=== PATIENT | female | born 1985 | race Caucasian/White ===

== ENCOUNTER 2016-11-01 09:30 | Day surgery (SDC) | payer BC ==
--- OUTSIDE RECORDS SUMMARY | 2016-11-01 09:33 | XMS REPORT | Continuity of Care Document ---
:1985 Author Organization [facility] ([facility]) Address [address] [place] [address] Phone [phone] Care Team Providers Name Role Phone Joselyn Masters Primary Care Provider [phone] Source Comments This disclosure is being made pursuant to the Care Everywhere program, applicable federal and state laws, and may not contain all informaitonavailable regarding this patient.[facility] ([facility]) Active Allergies and Adverse Reactions Allergen Noted Date Severity Reactions Comments Codeine 11/07/2013 Chest pain Prednisone 10/14/2015 OTHER Severe Migraine Current Medications Prescription Sig. Disp. Refills Start Date End Date Status gabapentin 300 mg 09/17/2015 Active capsule ibuprofen 800 mg tablet 08/22/2015 Active phentermine 30 mg Take 30 mg by mouth Active capsule every morning after breakfast. Take 2 hours after breakfast. ivermectin (SOOLANTRA) 1 Apply topically 30 g 11 04/20/2016 Active % topical cream daily. ketoconazole 2 % cream Apply to face daily. 30 g 11 04/20/2016 Active Active Problems Problem Noted Date Acne rosacea, erythematous telangiectatic type 11/07/2013 Social History Tobacco Use Types Packs/Day Years Used Date Never Smoker Smokeless Tobacco: Never Used Tobacco Cessation:Counseling Given: Yes Comments: Alcohol Use Drinks/Week oz/Week Comments Yes 1 Standard drinks or equivalent Plan of Care Health Maintenance Due Date Last Done Comments Hepatitis B Vaccine (1 of 3 - Primary Series) 1984 Tdap Vaccine 1995 Lipid Disorder Screening 2002 MMR Vaccine 2002 Td Vaccine 2002 Varicella Vaccine (1 of 2 - Adult - No Evidence of 2002 Immunity) Cervical Cancer Screening 2014 Influenza Vaccine: Seasonal (#1) 03/28/2016 Results from Last 3 Months Not on file
--- NOTE | 2016-11-01 09:57 | OR ---
Anesthesia Pre Procedure Eval Date of Service: 11/01/16 Pre Procedure Evaluation: Last Vital Signs Temp 36.6 C 11/01/16 09:35 Pulse 61 11/01/16 09:35 Resp 16 11/01/16 09:35 BP 133/87 11/01/16 09:35 Pulse Ox 100 11/01/16 09:35 Anesthesia Pre Procedure Evaluation DATE: 11/01/2016. TIME: 0950. INDICATIONS: Lumbosacral strain L5-S1. PAST MEDICAL HISTORY: This is a 31-year-old female with a history of low back pain and left leg pain which extends down to her left calf intermittently. She's had 2 epidural steroid injections in the past with approximately 6 months of relief. EXAM: MRI report and films were reviewed. Pain is 0/10 on pain scale at present. ASSESSMENT OF MEDICAL STATUS: O.K. to proceed with BRIDGET. PLANNED PROCEDURE: Fluoroscopic guided epidural steroid injection L5-S1. Home Medications: HOME MEDICATIONS Gabapentin [Neurontin] 300 mg PO BID PRN 10/25/16 [Last Taken Unknown] Ibuprofen [Motrin] 800 mg PO TID 10/25/16 [Last Taken Unknown] Phentermine HCl 30 mg PO DAILY 11/01/16 [Last Taken Unknown]
[2016-11-01] MEDS ORDERED: DEXAMETHASONE SOD PHOSPHATE 10 MG/ML VIAL IJ ONE (10:08)
[2016-11-01] MEDS ORDERED: LIDOCAINE HCL/PF 5 ML VIAL IJ ONE (10:08)
[2016-11-01] MEDS ORDERED: IOPAMIDOL 20 ML VIAL IJ ONE (10:08)
--- NOTE | 2016-11-01 10:26 | OR ---
Anesthesia Procedure Note - Anesthesia Procedure Note Date of Service: 11/01/16 Narrative: Vital Signs - Last Taken Temp 36.6 C 11/01/16 09:35 Pulse 54 L 11/01/16 10:10 Resp 18 11/01/16 10:10 BP 135/90 11/01/16 10:10 Pulse Ox 100 11/01/16 10:10 O2 Oxygen Delivery Method Room Air 11/01/16 10:24 ANESTHESIA PROCEDURE NOTE Date of Procedure: 11/01/2016. Time of procedure: 1010. Performed by: Juan Hastings CRNA Material Control Associate: None. Preprocedure diagnosis: Lumbosacral sprain L5-S1. Post procedure diagnosis: Same. Procedure: Fluoroscopic guided epidural Steroid Injection L5-S1. Indications: This is a 31-year-old female with a history of low back and left leg pain. Potential risks and benefits of the procedure were discussed with the patient and consent was obtained. Findings: See below. Details of the procedure: The patient was brought back to operating room #4. The patient was then placed in the prone position to comfort. DuraPrep was applied to the patient's back. Patient was then draped in sterile fashion. Lidocaine 1% was infiltrated to the skin and subcutaneous tissues at the level of the L5-S1 interspace using fluoroscopic guidance. The epidural space was identified using a 20-gauge Tuohy needle with [id number] technique. 1 mL of Isovue contrast was then injected after negative aspiration for blood and CSF. The epidural space was outlined in the AP and lateral views. Preservative free Decadron 5 mg + 5 mL of 1% preservative-free lidocaine was administered to the epidural space after negative aspiration for blood and CSF. The Tuohy needle was removed intact. A Band-Aid was applied to the patient's back. The patient was then placed in a supine position for 5 minutes before returning to the ambulatory surgical unit. Total fluoroscopy time: 9.6 seconds. Cumulative dose: 10.38 mGy. EBL: Minimal. Fluids: N/A. Specimen: N/A. Post procedure condition: The patient tolerated the procedure well. No complications were noted. No motor weaknesses or paresthesias were noted upon discharge. Thank you for this consultation. Juan Hastings CRNA
[2016-11-01 10:57] VITALS: BP 136/91
== END 2016-11-01 09:31 | disposition home or self-care (01) ==
LOC: AMB 09:30
PROVIDERS: ATTEND General Practice
PROC: 3E0S3BZ Introduction of Anesthetic Agent into Epidural Space, Percutaneous Approach (ICD-10-PCS; 2016-11-01)
PROC: 3E0S33Z Introduction of Anti-inflammatory into Epidural Space, Percutaneous Approach (ICD-10-PCS; principal; 2016-11-01 10:00)
DX: S33.5XXA Sprain of ligaments of lumbar spine, initial encounter (principal); Z68.30 Body mass index [BMI] 30.0-30.9, adult